=== PATIENT | female | born 1940 | race Caucasian/White ===

== ENCOUNTER 2016-07-22 00:18 | Emergency (ER) | payer MEDICARE, OTHER ==
--- NOTE | ~2016-07-22 | ER ---
PATIENT'S NAME: PAULETTE NIETO [facility] AGE: 76 Y [address] ROOM: [place] [address] LOCATION: [facility] ADMIT DATE: 07/22/2016 ER/Outpatient Report DISCHARGE DATE: 07/22/2016 FAMILY PHYSICIAN: Amish Zambrano MD ATTENDING PHYSICIAN: Wade Callahan Time of Arrival: 0018 hours. Time of Evaluation: 0021 hours. CHIEF COMPLAINT: Constipation. HISTORY OF PRESENT ILLNESS: The patient is a 76-year-old female, who presents to the emergency department today with a chief complaint of constipation. She reports this started about 3 days prior to arrival, but she developed worsening pain, worsening this evening. She was straining to have a bowel movement and was unable to have a bowel movement. The patient herself put on a glove and reached up and felt a hard stool. Denies any fevers or chills. No nausea or vomiting. No urinary frequency, urgency, or painful urination. Abdominal pain is currently 6/10 in severity. It is all over. PAST MEDICAL HISTORY: Hypertension and essential tremors. PAST SURGICAL HISTORY: Appendectomy and hysterectomy. SOCIAL HISTORY: The patient denies any tobacco, alcohol, or illicit drug use. ALLERGIES: ROCEPHIN. MEDICATIONS: Please see list. PRIMARY CARE DOCTOR: Dr. Amish Zambrano. REVIEW OF SYSTEMS: All systems are reviewed by myself and are negative with the exception of those discussed in HPI and past medical history. PHYSICAL EXAMINATION: PATIENT'S NAME: PAULETTE NIETO [facility] AGE: 76 Y [address] ROOM: [place] [address] LOCATION: [facility] ADMIT DATE: 07/22/2016 ER/Outpatient Report DISCHARGE DATE: 07/22/2016 FAMILY PHYSICIAN: Amish Zambrano MD ATTENDING PHYSICIAN: Wade Callahan VITAL SIGNS: Weight 58.9 kg. Blood pressure 190/100, pulse 113, respiratory rate 20, temperature 98.7, and oxygen saturation 93% on room air. GENERAL: The patient is a 76-year-old female, who appears her stated age, in moderate acute distress secondary to abdominal pain, constipation. HEENT: Normocephalic, atraumatic. Pupils are equal, round, and reactive to light. NECK: Supple. There is no nuchal rigidity. CARDIOVASCULAR: Tachycardic. No murmurs, rubs, or gallops. LUNGS: Clear to auscultation bilaterally. No wheezes, rales, or rhonchi. ABDOMEN: Soft with mild diffuse tenderness to palpation. There is no rebound, rigidity, or guarding. Positive bowel sounds. MUSCULOSKELETAL: The patient moves all 4 extremities. RECTAL: The patient does have a hard stool noted in the rectal vault, a small amount, is able to be evacuated. SKIN: Warm and dry. LABS AND X-RAYS: Procalcitonin is normal. CMP is unremarkable. LFTs normal. CBC is unremarkable. Coags are normal. Lactate is unremarkable. CT scan of the abdomen and pelvis with IV contrast is obtained. It does show rectal wall thickening with adjacent edema, otherwise moderately swollen left colon, otherwise unremarkable. IMPRESSION: 1. Constipation. 2. Rectal impaction. 3. Initial visit. EMERGENCY DEPARTMENT COURSE: The patient was brought back to the examination room. Seen and evaluated by myself. IV is established. Laboratory analysis and imaging are obtained as described above. The patient is given 4 mg of Zofran IV, 25 mcg of fentanyl IV as well as well as 1 L of normal saline IV. The patient does receive with enema with successful evacuation of a very large amount of stool. The patient's abdominal exam is repeated. She feels much improved after the evacuation. I have discussed the results with the patient. Upon attempting to evacuate the rectal impaction, she did have a small amount of bright red bleeding per rectum. This is stable at this time. I have discussed with her. I would like her to follow up with her primary care doctor, Dr. Zambrano, in 2 to 3 days for re-evaluation. I have discussed using Metamucil, MiraLax and stool softeners. I have discussed return care instructions including worsening symptoms or other concerns to return to emergency department as soon as possible. The patient is agreeable without further questions at this time. DISPOSITION: PATIENT'S NAME: PAULETTE NIETO [facility] AGE: 76 Y [address] ROOM: [place] [address] LOCATION: [facility] ADMIT DATE: 07/22/2016 ER/Outpatient Report DISCHARGE DATE: 07/22/2016 FAMILY PHYSICIAN: Amish Zambrano MD ATTENDING PHYSICIAN: Wade Callahan The patient is discharged home in good condition. DO NIKKI MORALES/modl /[id number] d: 07/22/16 0445 t: 07/29/16 1008, OUTPATIENT REPORT
[2016-07-22 01:37] LABS: BASOPHIL % 0.4 %; EOSINOPHIL # 0.1 K/uL (0.0-0.5); EOSINOPHIL % 0.7 %; HEMATOCRIT 46.6 % (33.0-46.0); HEMOGLOBIN 15.4 g/dL (10.0-15.0); IMMATURE GRANULOCYTE % 0.3 %; LYMPHOCYTE # 1.4 K/uL (0.8-4.0); LYMPHOCYTE % 21.5 %; MCH 31.8 pg (27.0-34.0); MCV 96.3 fl (83.0-98.0); MONOCYTE # 0.5 K/uL (0.0-1.0); MONOCYTE % 7.7 %; MPV 8.7 fl (9.4-12.4); NEUTROPHIL # (ANC) 4.7 K/uL (1.8-7.8); NEUTROPHIL % 69.4 %; NRBC % 0 /100WBC (0-0.00); PLATELET COUNT 210 K/uL (150-450); RBC 4.84 M/uL (3.50-5.50); RDW-CV 13.1 % (11.9-14.6); WBC 6.7 K/uL (4.0-11.0)
[2016-07-22 01:57] LABS: INR - (THERAPEUTIC) 0.94 (0.92-1.07); PROTIME 9.9 SECONDS (9.8-11.4); PTT 24 SECONDS (25-32)
[2016-07-22 02:03] LABS: ALBUMIN 3.6 gm/dL (3.5-5.0); ALK PHOS 70 IU/L (33-138); ALT 18 IU/L (12-78); ANION GAP 13.6 (10.0-19.0); AST 18 IU/L (10-40); BLOOD UREA NITROGEN 14 mg/dL (6-24); CHLORIDE 103 mMol/L (96-110); CO2 24 mMol/L (22-32); CREATININE 0.9 mg/dL (0.5-1.1); ESTIMATED GFR (MDRD EQUATION) > 60; POTASSIUM 3.6 mMol/L (3.7-5.1); SODIUM 137 mMol/L (135-145); TOTAL PROTEIN 6.9 g/dL (6.0-8.4)
== END 2016-07-22 03:13 | disposition disaster alternative care site (69) ==
LOC: GMED 00:18
PROVIDERS: Emergency Medicine
DX: K59.00 Constipation, unspecified (principal); K56.49 Other impaction of intestine; I10 Essential (primary) hypertension; Z90.49 Acquired absence of other specified parts of digestive tract; Z90.710 Acquired absence of both cervix and uterus; Z88.1 Allergy status to other antibiotic agents
CPT/HCPCS: J2405; J3010; J7030; Q9967